=== PATIENT | male | born 1940 | race Caucasian/White ===

== ENCOUNTER 2018-01-05 12:17 | Outpatient (REF) | payer MEDICARE, BC, SELFPAY ==
[2018-01-05 21:40] LABS: Abs Immature Grans 0.03 k/cumm (0.0-0.09); Absolute Basophil Count 0.03 k/cumm (0.0-0.2); Absolute Eosinophil Count 0.21 k/cumm (0.0-0.7); Absolute Lymphocyte Count 1.06 k/cumm (1.2-3.4); Absolute Monocyte Count 1.01 k/cumm (0.11-0.7); Absolute Neutrophil Count 4.42 k/cumm (1.2-6.7); Basophils % 0.4; Eosinophils % 3.1; HCT 42.6 % (40.0-50.0); HGB 14.9 g/dL (13.5-17.5); Immature Grans % 0.4; Lymphocytes % 15.7; Mean Corpuscular Hemoglobin 32.7 pg (27.0-33.0); Mean Corpuscular Volume 93.4 fL (80-95); Mean Platelet Volume 10.5 fL (8.0-11.0); Monocytes % 14.9; Neutrophils % 65.5; Platelet Count 157 x1000/uL (130-400); RBC 4.56 m/cumm (4.50-6.00); RBC Distribution Width 12.6 % (11.8-14.1); White Blood Cell Count 6.76 k/cumm (4.4-10.8)
[2018-01-05 21:56] LABS: ALT 59 U/L (12-78); AST 79 U/L (15-37); Albumin 3.4 g/dL (3.4-5.0); Alkaline Phosphatase 99 U/L (46-116); Anion Gap 9.6 mmol/L (3-11); BUN 12 mg/dL (7-18); Bilirubin, Total 1.3 mg/dL (0.2-1.0); CO2 27.4 mmol/L (21.0-32.0); CREATININE 1.05 mg/dL (0.70-1.30); Calcium 9.3 mg/dL (8.5-10.1); Chloride 98 mmol/L (98-107); Cholesterol 219 mg/dL (50-200); Glucose 99 mg/dL (70-100); HDL Cholesterol 76 mg/dL (40-60); LDL CHOLESTEROL 132 mg/dL (<100); Potassium 3.9 mmol/L (3.5-5.1); Sodium 135 mmol/L (136-145); Total Protein 7.9 g/dL (6.4-8.2); Triglyceride 96 mg/dL (30-150)
== END 2018-01-05 12:37 ==
LOC: LBN 12:17
PROVIDERS: PCP Internal Medicine; Visit Provider Nurse Practitioner Family
DX: E78.5 Hyperlipidemia, unspecified (principal); R94.5 Abnormal results of liver function studies; R61 Generalized hyperhidrosis
CPT/HCPCS: 80053; 80061; 83721; 85025

== ENCOUNTER 2018-02-04 12:08 | Outpatient (REF) | payer MEDICARE, BC, SELFPAY ==
[2018-02-04 21:45] LABS: Iron 114 ug/dL (50-175); Total Iron Binding Capacity 344 ug/dL (250-450); Transferrin Sat 33 % (20-55)
[2018-02-04 21:46] LABS: Prothrombin Time 11.2 sec (9.3-10.8)
[2018-02-04 21:47] LABS: ALT 65 U/L (12-78); AST 94 U/L (15-37); Albumin 3.4 g/dL (3.4-5.0); Alkaline Phosphatase 75 U/L (46-116); Anion Gap 14.8 mmol/L (3-11); BUN 20 mg/dL (7-18); Bilirubin, Direct 0.39 mg/dL (0.00-0.20); Bilirubin, Total 1.1 mg/dL (0.2-1.0); CO2 23.2 mmol/L (21.0-32.0); CREATININE 1.02 mg/dL (0.70-1.30); Calcium 9.4 mg/dL (8.5-10.1); Chloride 102 mmol/L (98-107); Glucose 89 mg/dL (70-100); Potassium 3.9 mmol/L (3.5-5.1); Sodium 140 mmol/L (136-145); Total Protein 7.9 g/dL (6.4-8.2)
[2018-02-04 22:09] LABS: INR 1.1 (1.0-3.5)
[2018-02-06 08:50] LABS: PSA, Diagnostic 0.4 ng/ml (0-6.5)
[2018-02-06 11:19] LABS: HBs Antibody, Qual Negative; HBs Antibody, Quant 3.9 mIU/mL; Hepatitis B Core Antibody Negative (NEGAT); Hepatitis B surface Ag Negative (NEGAT); Hepatitis C Ab w Rflx HCV PCR Negative (NEGAT)
== END 2018-02-04 12:28 ==
LOC: NCHCN 12:08
PROVIDERS: PCP Internal Medicine; Visit Provider Nurse Practitioner Family
DX: K74.60 Unspecified cirrhosis of liver (principal); R94.5 Abnormal results of liver function studies; N40.0 Benign prostatic hyperplasia without lower urinary tract symptoms
CPT/HCPCS: 80053; 80076; 86704; 86706; 86803; 87340; 83540; 83550; 84153; 85610

== ENCOUNTER 2018-05-26 13:58 | Outpatient (REF) | payer MEDICARE, BC, SELFPAY ==
[2018-05-26 22:15] LABS: ALT 23 U/L (12-78); AST 33 U/L (15-37); Albumin 3.3 g/dL (3.4-5.0); Alkaline Phosphatase 79 U/L (46-116); Bilirubin, Direct 0.22 mg/dL (0.00-0.20); Bilirubin, Total 0.9 mg/dL (0.2-1.0); Total Protein 7.7 g/dL (6.4-8.2)
[2018-05-26 23:17] LABS: COMMENT (LAB VIEW ONLY) 136.91 mg/dL; Microalb ug/mg Crea 5.1 ug/mg Cr
== END 2018-05-26 14:18 ==
LOC: NCHCN 13:58
PROVIDERS: PCP Internal Medicine; Visit Provider Registered Nurse
DX: R35.0 Frequency of micturition (principal); K74.60 Unspecified cirrhosis of liver
CPT/HCPCS: 80076; 82043; 82570; 87086

== ENCOUNTER 2018-11-23 10:55 | Outpatient (REF) | payer MEDICARE, BC, SELFPAY ==
[2018-11-23 21:33] LABS: ALT 27 U/L (16-63); AST 31 U/L (15-37); Albumin 3.6 g/dL (3.4-5.0); Alkaline Phosphatase 93 U/L (46-116); Anion Gap 11.2 mmol/L (3-11); BUN 15 mg/dL (7-18); CO2 27.8 mmol/L (21.0-32.0); CREATININE 1.17 mg/dL (0.70-1.30); Calcium 9.3 mg/dL (8.5-10.1); Chloride 102 mmol/L (98-107); Glucose 156 mg/dL (70-100); Sodium 141 mmol/L (136-145); Total Protein 8.1 g/dL (6.4-8.2)
== END 2018-11-23 11:15 ==
LOC: NCHCN 10:55
PROVIDERS: PCP Registered Nurse; Visit Provider Registered Nurse
DX: I10 Essential (primary) hypertension (principal)
CPT/HCPCS: 80053

== ENCOUNTER 2018-12-25 09:22 | Outpatient (REF) | payer MEDICARE, BC, SELFPAY ==
[2018-12-25 21:36] LABS: Anion Gap 9.4 mmol/L (3-11); BUN 16 mg/dL (7-18); CO2 26.6 mmol/L (21.0-32.0); CREATININE 1.28 mg/dL (0.70-1.30); Chloride 101 mmol/L (98-107); Estimated GFR 54.64 (mL/min/1.73m2); Glucose 296 mg/dL (70-100); Potassium 3.9 mmol/L (3.5-5.1); Sodium 137 mmol/L (136-145)
== END 2018-12-25 09:42 ==
LOC: NCHCN 09:22
PROVIDERS: PCP Registered Nurse; Visit Provider Registered Nurse
DX: E11.9 Type 2 diabetes mellitus without complications (principal); I10 Essential (primary) hypertension
CPT/HCPCS: 80048

== ENCOUNTER 2019-02-22 11:50 | Outpatient (REF) | payer MEDICARE, BC, SELFPAY ==
[2019-02-22 21:00] LABS: INR 1.1 (0.9-1.1)
[2019-02-22 21:12] LABS: Anion Gap 9.9 mmol/L (3-11); BUN 19 mg/dL (7-18); CO2 26.1 mmol/L (21.0-32.0); CREATININE 1.14 mg/dL (0.70-1.30); Calcium 9.4 mg/dL (8.5-10.1); Calculated LDL 76 mg/dL; Chloride 102 mmol/L (98-107); Cholesterol 149 mg/dL (<200); Glucose 250 mg/dL (74-106); HDL Cholesterol 57 mg/dL (40-60); Potassium 3.9 mmol/L (3.5-5.1); Sodium 138 mmol/L (136-145); Triglyceride 81 mg/dL (<150)
== END 2019-02-22 12:10 ==
LOC: NCHCN 11:50
PROVIDERS: PCP Registered Nurse; Visit Provider Registered Nurse
DX: E78.5 Hyperlipidemia, unspecified (principal); I10 Essential (primary) hypertension; E11.9 Type 2 diabetes mellitus without complications; K74.60 Unspecified cirrhosis of liver
CPT/HCPCS: 80048; 80061; 85610

== ENCOUNTER 2019-08-25 08:38 | Outpatient (REF) | payer MEDICARE, BC, SELFPAY ==
[2019-08-25 22:08] LABS: COMMENT (LAB VIEW ONLY) 100.36 mg/dL; Microalb ug/mg Crea 8.2 ug/mg Cr
== END 2019-08-25 08:58 ==
LOC: NCHCN 08:38
PROVIDERS: PCP Registered Nurse; Visit Provider Registered Nurse
DX: E11.9 Type 2 diabetes mellitus without complications (principal)
CPT/HCPCS: 82043; 82570

== ENCOUNTER 2020-03-15 17:13 | Outpatient (REF) | payer MEDICARE, BC, SELFPAY ==
[2020-03-15 22:19] LABS: ALT 37 U/L (16-63); AST 32 U/L (15-37); Albumin 3.7 g/dL (3.4-5.0); Alkaline Phosphatase 100 U/L (46-116); Anion Gap 11.3 mmol/L (3-11); BUN 14 mg/dL (7-18); Bilirubin, Total 0.9 mg/dL (0.2-1.0); CO2 25.7 mmol/L (21.0-32.0); CREATININE 1.15 mg/dL (0.70-1.30); Calcium 9.3 mg/dL (8.5-10.1); Chloride 99 mmol/L (98-107); Glucose 144 mg/dL (74-106); Potassium 3.6 mmol/L (3.5-5.1); Sodium 136 mmol/L (136-145); Total Protein 7.7 g/dL (6.4-8.2)
[2020-03-16 19:48] LABS: PSA, Screening 0.4 ng/mL (0.0-6.5)
== END 2020-03-15 17:33 ==
LOC: NCHCN 17:13
PROVIDERS: PCP Registered Nurse; Visit Provider Registered Nurse
DX: E11.9 Type 2 diabetes mellitus without complications (principal); I10 Essential (primary) hypertension; Z12.5 Encounter for screening for malignant neoplasm of prostate
CPT/HCPCS: 80053; 84153

== ENCOUNTER 2020-09-13 15:39 | Outpatient (REF) | payer MEDICARE, BC, SELFPAY ==
[2020-09-13 15:28] LABS: COMMENT (LAB VIEW ONLY) 93.65 mg/dL; Microalb ug/mg Crea 22.2 ug/mg Cr
== END 2020-09-13 15:40 | disposition home or self-care (01) ==
LOC: NCHCN 15:39
PROVIDERS: PCP Registered Nurse; Visit Provider Registered Nurse
DX: E11.9 Type 2 diabetes mellitus without complications (principal)
CPT/HCPCS: 82043; 82570

== ENCOUNTER 2020-10-23 19:22 | Outpatient (REF) | payer MEDICARE, BC, SELFPAY ==
[2020-10-25 09:18] LABS: AFP Tumor Marker 16.1 ng/mL (<8.1)
== END 2020-10-23 19:23 | disposition home or self-care (01) ==
LOC: NCHCN 19:22
PROVIDERS: PCP Registered Nurse; Visit Provider Registered Nurse
DX: K74.60 Unspecified cirrhosis of liver (principal)
CPT/HCPCS: 82105

== ENCOUNTER 2021-03-21 17:18 | Outpatient (REF) | payer MEDICARE, BC, SELFPAY ==
[2021-03-21 21:11] LABS: ALT 32 U/L (16-63); AST 32 U/L (15-37); Albumin 3.9 g/dL (3.4-5.0); Alkaline Phosphatase 107 U/L (46-116); BUN 15 mg/dL (7-18); Bilirubin, Total 0.8 mg/dL (0.2-1.0); CREATININE 1.1 mg/dL (0.70-1.30); Calcium 9.4 mg/dL (8.5-10.1); Chloride 98 mmol/L (98-107); Glucose 108 mg/dL (74-106); Potassium 3.5 mmol/L (3.5-5.1); Sodium 136 mmol/L (136-145); Total Protein 8.1 g/dL (6.4-8.2)
[2021-03-22 18:47] LABS: PSA, Screening 0.8 ng/mL (0.0-6.5)
[2021-03-23 09:50] LABS: AFP Tumor Marker 18.8 ng/mL (<8.1)
== END 2021-03-21 17:19 | disposition home or self-care (01) ==
LOC: NCHCN 17:18
PROVIDERS: PCP Registered Nurse; Visit Provider Registered Nurse
DX: I10 Essential (primary) hypertension; Z12.5 Encounter for screening for malignant neoplasm of prostate; K74.60 Unspecified cirrhosis of liver
CPT/HCPCS: 80053; 84153; 82105

== ENCOUNTER 2021-08-29 14:45 | Outpatient (REF) | payer MEDICARE, BC, SELFPAY ==
[2021-08-29 21:24] LABS: Clarity Clear
[2021-08-29 22:24] LABS: Polynuclear Cells 12 %
[2021-08-29 22:25] LABS: Mononuclear Cells 88 %
[2021-08-29 22:39] LABS: Crystals (BF) No Crystals seen
== END 2021-08-29 14:46 | disposition home or self-care (01) ==
LOC: NCHCN 14:45
PROVIDERS: PCP Registered Nurse; Visit Provider Internal Medicine
DX: M25.562 Pain in left knee (principal)
CPT/HCPCS: 87070; 87205; 89051; 89060

== ENCOUNTER 2021-10-17 11:40 | Outpatient (REF) | payer MEDICARE, BC, SELFPAY ==
[2021-10-17 19:10] LABS: COMMENT (LAB VIEW ONLY) 434.17 mg/dL; Microalb ug/mg Crea 67.1 ug/mg Cr
== END 2021-10-17 11:41 | disposition home or self-care (01) ==
LOC: NCHCN 11:40
PROVIDERS: PCP Registered Nurse; Visit Provider Registered Nurse
DX: E11.9 Type 2 diabetes mellitus without complications (principal)
CPT/HCPCS: 82043; 82570

== ENCOUNTER 2022-04-10 12:30 | Outpatient (REF) | payer MEDICARE, BC, SELFPAY ==
[2022-04-10 14:15] LABS: HCT 43.1 % (40.0-50.0); HGB 14.6 g/dL (13.5-17.5); MCH 30.9 pg (27.0-33.0); MCHC 33.9 % (32.0-36.0); MCV 91 fL (80-95); MPV 10.8 fL (8.0-11.0); Platelet Count 161 10^3/uL (130-400); RBC 4.73 10^6/uL (4.36-5.78); RDW 12.3 % (11.8-14.1); RDW-SD 40.7 fL
[2022-04-10 14:31] LABS: ALT 27 U/L (16-63); AST 33 U/L (15-37); Albumin 3.7 g/dL (3.4-5.0); Alkaline Phosphatase 107 U/L (46-116); Anion Gap 7.6 mmol/L (3-11); BUN 14 mg/dL (7-18); Bilirubin, Total 1.1 mg/dL (0.2-1.0); CO2 26.4 mmol/L (21.0-32.0); CREATININE 1.1 mg/dL (0.70-1.30); Calcium 9.3 mg/dL (8.5-10.1); Calculated LDL 76 mg/dL (<100); Chloride 104 mmol/L (98-107); Cholesterol 156 mg/dL (<200); Estimated GFR 68.29 (mL/min/1.73m2); Glucose 149 mg/dL (74-106); HDL Cholesterol 63 mg/dL (40-60); Sodium 138 mmol/L (136-145); Total Protein 7.9 g/dL (6.4-8.2); Triglyceride 89 mg/dL (<150)
[2022-04-10 14:32] LABS: INR 1.1 (0.9-1.1); Prothrombin Time 10.9 sec (9.3-11.0)
[2022-04-10 14:34] LABS: Hemoglobin A1C 5.9 % (<5.7)
== END 2022-04-10 12:31 | disposition home or self-care (01) ==
LOC: NCHCN 12:30
PROVIDERS: PCP Registered Nurse; Visit Provider Registered Nurse
DX: E11.9 Type 2 diabetes mellitus without complications (principal); K74.60 Unspecified cirrhosis of liver; I10 Essential (primary) hypertension; E78.5 Hyperlipidemia, unspecified
CPT/HCPCS: 80053; 80061; 85027; 83036; 85610

== ENCOUNTER 2022-10-16 08:29 | Outpatient (REF) | payer MEDICARE, BC, SELFPAY ==
--- OUTSIDE RECORDS SUMMARY | 2022-10-16 08:31 | XMS_ITS | CCD ---
Author Name Unknown Address [address] [place] [address] [phone] Organization Unknown Address [address] [place] [address] [id number] Care Team Providers Care Ton Cylinder Inspector Name Role Phone NETTIE LONGORIA Attending Physician [phone] Vital Signs Unknown or Not Available. Allergies Allergy Code Allergy Type Reaction Status No Known Allergies 0 No known allergies Active Procedures Unknown or Not Available. History of Immunizations Unknown or Not Available. Problems Unknown or Not Available. Results Unknown or Not Available. Active Medications Unknown or Not Available. Medications Administered During Visit Unknown or Not Available. Encounters Encounter Diagnosis Diagnosis Code Start Date Unilateral primary osteoarthritis, left knee M17 12 09/13/2021 Social History Smoking Status Code Start Date End Date Former smoker [id number] Patient Decision Aids Unknown or Not Available. Discharge Instructions You were admitted to [facility] on 09/13/2021 12:53 with a principal diagnosis of Unilateral primary osteoarthritis, left knee You were discharged from [facility] on 09/13/2021 12:53 Should you have any questions prior to discharge, please contact a member of your healthcare team. If you have left the hospital and have any questions, please contact your primary care physician. Chief Complaint and Reason For Visit Unknown or Not Available. Function Status Unknown or Not Available. Plan of Care Unknown or Not Available. Referral/Transition of Care Unknown or Not Available.
--- OUTSIDE RECORDS SUMMARY | 2022-10-16 08:32 | XMS_ITS | CCD ---
Author Name Unknown Address [address] [place] [address] [phone] Organization Unknown Address [address] [place] [address] [phone] Care Team Providers Care Head Of Drama Name Role Phone REBEL HOGUE Attending Physician [phone] Vital Signs Unknown or Not Available. Allergies [...] Encounters Encounter Diagnosis Diagnosis Code Start Date Cirrhosis of liver [id number] 04/02/2021 Social History Smoking Status Code Start Date End Date Former smoker [id number] Patient Decision Aids Unknown or Not Available. Discharge Instructions You were admitted to [facility] on 04/02/2021 09:13 with a principal diagnosis of Unspecified cirrhosis of liver You were discharged from [facility] on 04/02/2021 09:13 Should you have any questions prior to discharge, please contact a member of your healthcare team. If you have left the hospital and have any questions, please contact your primary care physician. Chief Complaint and Reason For Visit Chief Complaint Date of Onset CIRRHOSIS, F/U Function Status Unknown or Not Available. Plan of Care Unknown or Not Available. Referral/Transition of Care Unknown or Not Available.
[2022-10-16 17:04] LABS: Microalb ug/mg Crea 110.1 ug/mg Cr
== END 2022-10-16 08:30 | disposition home or self-care (01) ==
LOC: NCHCN 08:29
PROVIDERS: PCP Registered Nurse; Visit Provider Registered Nurse
DX: E11.9 Type 2 diabetes mellitus without complications (principal)
CPT/HCPCS: 82043; 82570

== ENCOUNTER 2023-04-07 18:40 | Outpatient (REF) | payer MEDICARE, BC, SELFPAY ==
[2023-04-07 15:01] LABS: HCT 42.4 % (40.0-50.0); HGB 14.3 g/dL (13.5-17.5); MCHC 33.7 % (32.0-36.0); MCV 92 fL (80-95); MPV 10.8 fL (8.0-11.0); Platelet Count 146 10^3/uL (130-400); RBC 4.61 10^6/uL (4.36-5.78); WBC 5.71 10^3/uL (4.4-10.8)
[2023-04-07 15:09] LABS: ALT 41 U/L (16-63); AST 40 U/L (15-37); Albumin 3.4 g/dL (3.4-5.0); Alkaline Phosphatase 111 U/L (46-116); Anion Gap 6.8 mmol/L (3-11); BUN 13 mg/dL (7-18); Bilirubin, Total 1.3 mg/dL (0.2-1.0); CO2 29.2 mmol/L (21.0-32.0); CREATININE 1.1 mg/dL (0.70-1.30); Calcium 9.2 mg/dL (8.5-10.1); Calculated LDL 93 mg/dL (<100); Chloride 103 mmol/L (98-107); Cholesterol 190 mg/dL (<200); Estimated GFR 67.86 (mL/min/1.73m2); Glucose 170 mg/dL (74-106); HDL Cholesterol 75 mg/dL (40-60); Potassium 4.5 mmol/L (3.5-5.1); Sodium 139 mmol/L (136-145); Total Protein 8.1 g/dL (6.4-8.2); Triglyceride 111 mg/dL (<150)
[2023-04-07 15:40] LABS: Hemoglobin A1C 6.1 % (<5.7)
== END 2023-04-07 18:41 | disposition home or self-care (01) ==
LOC: NCHCN 18:40
PROVIDERS: PCP Registered Nurse; Visit Provider Nurse Practitioner Family
DX: E78.5 Hyperlipidemia, unspecified (principal); E11.9 Type 2 diabetes mellitus without complications; K74.60 Unspecified cirrhosis of liver
CPT/HCPCS: 80053; 80061; 85027; 83036

== ENCOUNTER 2023-07-09 15:46 | Outpatient (REF) | payer MEDICARE, BC, SELFPAY ==
[2023-07-09 23:02] LABS: COMMENT (LAB VIEW ONLY) 395.64 mg/dL; Microalb ug/mg Crea 85.7 ug/mg Cr
== END 2023-07-09 15:47 | disposition home or self-care (01) ==
LOC: NCHCN 15:46
PROVIDERS: PCP Registered Nurse; Visit Provider Nurse Practitioner Family
DX: E11.9 Type 2 diabetes mellitus without complications (principal)
CPT/HCPCS: 82043; 82570

== ENCOUNTER 2023-07-23 20:57 | Outpatient (REF) | payer MEDICARE, BC, SELFPAY ==
[2023-07-23 21:34] LABS: Anion Gap 11.3 mmol/L (3-11); BUN 17 mg/dL (7-18); CO2 24.7 mmol/L (21.0-32.0); CREATININE 1.2 mg/dL (0.70-1.30); Calcium 9.7 mg/dL (8.5-10.1); Chloride 108 mmol/L (98-107); Estimated GFR 60.75 (mL/min/1.73m2); Glucose 111 mg/dL (74-106); Potassium 4.4 mmol/L (3.5-5.1); Sodium 144 mmol/L (136-145)
== END 2023-07-23 20:58 | disposition home or self-care (01) ==
LOC: NCHCN 20:57
PROVIDERS: PCP Registered Nurse; Visit Provider Nurse Practitioner Family
DX: K74.60 Unspecified cirrhosis of liver (principal)
CPT/HCPCS: 80048

== ENCOUNTER 2023-12-08 13:55 | Outpatient (REF) | payer MEDICARE, BC, SELFPAY ==
[2023-12-08 14:38] LABS: ALT 35 U/L (16-63); AST 39 U/L (15-37); Albumin 3.6 g/dL (3.4-5.0); Alkaline Phosphatase 123 U/L (46-116); Anion Gap 8.1 mmol/L (3-11); BUN 19 mg/dL (7-18); Bilirubin, Total 0.97 mg/dL (0.2-1.0); CO2 26.9 mmol/L (21.0-32.0); CREATININE 1.2 mg/dL (0.70-1.30); Calcium 9.9 mg/dL (8.5-10.1); Chloride 98 mmol/L (98-107); Estimated GFR 60.75 (mL/min/1.73m2); Glucose 154 mg/dL (74-106); Potassium 4.9 mmol/L (3.5-5.1); Sodium 133 mmol/L (136-145)
[2023-12-08 14:39] LABS: Abs Immature Grans 0.17 10^3/uL (0.0-0.06); Absolute Basophil Count 0.05 10^3/uL (0.0-0.2); Absolute Eosinophil Count 0.05 10^3/uL (0.0-0.7); Absolute Lymphocyte Count 0.79 10^3/uL (1.2-3.4); Absolute Monocyte Count 1.01 10^3/uL (0.1-0.8); Basophils % 0.4 %; Eosinophils % 0.4 %; HCT 43.1 % (40.0-50.0); Immature Grans % 1.5 %; Lymphocytes % 6.9 %; MCH 33.4 pg (27.0-33.0); MCHC 34.8 % (32.0-36.0); MCV 96 fL (80-95); MPV 10.5 fL (8.0-11.0); Monocytes % 8.8 %; Platelet Count 200 10^3/uL (130-400); RBC 4.49 10^6/uL (4.36-5.78); RDW 12.6 % (11.8-14.1); RDW-SD 43.9 fL; WBC 11.44 10^3/uL (4.4-10.8)
[2023-12-08 14:41] LABS: Absolute Neutrophil Count 9.38 10^3/uL (1.2-6.7)
== END 2023-12-08 13:56 | disposition home or self-care (01) ==
LOC: NCHCN 13:55
PROVIDERS: PCP Registered Nurse; Visit Provider Nurse Practitioner Family
DX: R94.6 Abnormal results of thyroid function studies (principal)
CPT/HCPCS: 80053; 85025

== ENCOUNTER 2024-03-31 16:15 | Outpatient (REF) | payer MEDICARE, BC, SELFPAY ==
[2024-03-31 17:25] LABS: ALT 23 U/L (16-63); AST 26 U/L (15-37); Albumin 2.9 g/dL (3.4-5.0); Alkaline Phosphatase 113 U/L (46-116); Anion Gap 7.1 mmol/L (3-11); BUN 18 mg/dL (7-18); Bilirubin, Direct 0.2 mg/dL (0.0-0.2); Bilirubin, Total 0.53 mg/dL (0.2-1.0); CO2 27.9 mmol/L (21.0-32.0); Calcium 9.1 mg/dL (8.5-10.1); Chloride 105 mmol/L (98-107); Estimated GFR 75.61 (mL/min/1.73m2); Glucose 145 mg/dL (74-106); Potassium 4.6 mmol/L (3.5-5.1); Sodium 140 mmol/L (136-145); Total Protein 6.5 g/dL (6.4-8.2)
== END 2024-03-31 16:16 | disposition home or self-care (01) ==
LOC: LBN 16:15
PROVIDERS: PCP Registered Nurse; Visit Provider Family Medicine
DX: K70.30 Alcoholic cirrhosis of liver without ascites (principal); K76.6 Portal hypertension; R16.0 Hepatomegaly, not elsewhere classified
CPT/HCPCS: 80053; 80076

== ENCOUNTER 2024-11-03 15:51 | Outpatient (REF) | payer MEDICARE, BC, SELFPAY ==
[2024-11-03 14:26] LABS: HCT 44.3 % (40.0-50.0); HGB 14.4 g/dL (13.5-17.5); MCH 29.0 pg (27.0-33.0); MCHC 32.5 % (32.0-36.0); MCV 89 fL (80-95); MPV 10.5 fL (8.0-11.0); Platelet Count 148 10^3/uL (130-400); RBC 4.97 10^6/uL (4.36-5.78); RDW 15.8 % (11.8-14.1); RDW-SD 49.2 fL; WBC 5.79 10^3/uL (4.4-10.8)
[2024-11-03 14:38] LABS: INR 1.1 (0.9-1.1); Prothrombin Time 10.6 sec (9.1-11.1)
[2024-11-03 14:51] LABS: ALT 41 U/L (16-63); AST 53 U/L (15-37); Albumin 3.3 g/dL (3.4-5.0); Alkaline Phosphatase 112 U/L (46-116); Anion Gap 7.6 mmol/L (3-11); BUN 13 mg/dL (7-18); Bilirubin, Total 0.9 mg/dL (0.2-1.0); CO2 27.4 mmol/L (21.0-32.0); Calcium 9.7 mg/dL (8.5-10.1); Chloride 103 mmol/L (98-107); Estimated GFR 67.02 (mL/min/1.73m2); Glucose 207 mg/dL (74-106); Potassium 4.4 mmol/L (3.5-5.1); Sodium 138 mmol/L (136-145); Total Protein 8.2 g/dL (6.4-8.2)
== END 2024-11-03 15:52 | disposition home or self-care (01) ==
LOC: NCHCN 15:51
PROVIDERS: PCP Registered Nurse; Visit Provider Nurse Practitioner Family
DX: K74.60 Unspecified cirrhosis of liver (principal)
CPT/HCPCS: 80053; 85027; 85610

== ENCOUNTER 2025-01-11 16:30 | Outpatient (REF) | payer MEDICARE, BC, SELFPAY ==
[2025-01-11 21:05] LABS: HCT 37.9 % (40.0-50.0); HGB 12.4 g/dL (13.5-17.5); MCH 28.8 pg (27.0-33.0); MCHC 32.7 % (32.0-36.0); MCV 88 fL (80-95); MPV 10.7 fL (8.0-11.0); Platelet Count 162 10^3/uL (130-400); RBC 4.30 10^6/uL (4.36-5.78); RDW 14.9 % (11.8-14.1); RDW-SD 47.6 fL; WBC 7.00 10^3/uL (4.4-10.8)
[2025-01-11 21:14] LABS: INR 1.1 (0.9-1.1); Prothrombin Time 10.6 sec (9.1-11.1)
[2025-01-11 21:17] LABS: ALT 56 U/L (16-63); AST 58 U/L (15-37); Albumin 2.9 g/dL (3.4-5.0); Alkaline Phosphatase 119 U/L (46-116); Anion Gap 8.5 mmol/L (3-11); BUN 15 mg/dL (7-18); Bilirubin, Total 0.7 mg/dL (0.2-1.0); CO2 26.5 mmol/L (21.0-32.0); Calcium 9.2 mg/dL (8.5-10.1); Chloride 104 mmol/L (98-107); Glucose 118 mg/dL (74-106); Magnesium 2.0 mg/dL (1.8-2.4); Potassium 4.4 mmol/L (3.5-5.1); Sodium 139 mmol/L (136-145); Total Protein 8.1 g/dL (6.4-8.2)
[2025-01-12 13:04] LABS: Hemoglobin A1C 6.4 % (<5.7)
== END 2025-01-11 16:31 | disposition home or self-care (01) ==
LOC: NCHCN 16:30
PROVIDERS: PCP Registered Nurse; Visit Provider Nurse Practitioner Family
DX: K74.69 Other cirrhosis of liver (principal); E83.42 Hypomagnesemia; E11.9 Type 2 diabetes mellitus without complications
CPT/HCPCS: 80053; 85027; 83036; 83735; 85610